=== PATIENT | male | born 1945 | race Caucasian/White ===

== ENCOUNTER → 2023-11-16 16:58 | Outpatient (REF) | payer OTHER, SELFPAY | LOC: RAD 16:58 | PROVIDERS: ATTENDING PHYSICIAN Registered Nurse | DX: S29.9XXA Unspecified injury of thorax, initial encounter (principal) | CPT/HCPCS: 71111 ==

== ENCOUNTER 2023-11-25 06:14 | Day surgery (SDC) | payer OTHER, SELFPAY ==
[2023-11-25 10:35] VITALS: BMI 26.3
[2023-11-25 10:36] VITALS: BMI 26.3
[2023-11-25 10:37] VITALS: BP 160/96
[2023-11-25 12:37] VITALS: BP 145/90
[2023-11-25 12:45] VITALS: BP 167/94
[2023-11-25 13:00] VITALS: BP 162/79
== END 2023-11-25 13:05 | disposition home or self-care (01) ==
LOC: GI 06:14
PROVIDERS: ATTENDING PHYSICIAN Internal Medicine Gastroenterology
DX: D12.0 Benign neoplasm of cecum (principal); D12.2 Benign neoplasm of ascending colon; K57.30 Diverticulosis of large intestine without perforation or abscess without bleeding; K62.1 Rectal polyp; Q43.8 Other specified congenital malformations of intestine; Z86.010 Personal history of colon polyps
CPT/HCPCS: 45385; 45380; 45381; 88305

== ENCOUNTER 2024-02-12 06:26 | Day surgery (SDC) | payer OTHER, SELFPAY ==
[2024-02-12 07:13] VITALS: BMI 25.1
[2024-02-12 07:27] VITALS: BP 160/88
[2024-02-12 07:44] VITALS: BMI 25.1
[2024-02-12 09:24] VITALS: BP 115/73
[2024-02-12 09:30] VITALS: BP 113/68
[2024-02-12 09:45] VITALS: BP 128/75
[2024-02-12 09:55] VITALS: BP 123/85
== END 2024-02-12 10:00 | disposition home or self-care (01) ==
LOC: GI 06:26
PROVIDERS: ATTENDING PHYSICIAN Internal Medicine Gastroenterology
DX: D12.2 Benign neoplasm of ascending colon (principal); K57.30 Diverticulosis of large intestine without perforation or abscess without bleeding; K64.8 Other hemorrhoids; D12.3 Benign neoplasm of transverse colon; K62.1 Rectal polyp; Z86.010 Personal history of colon polyps
CPT/HCPCS: 45385; 45381; 45380; 88305

== ENCOUNTER → 2025-04-06 13:33 | Outpatient (REF) | payer OTHER, SELFPAY | LOC: HWRAD 13:33 | PROVIDERS: ATTENDING PHYSICIAN Nurse Practitioner Adult Health | DX: N18.31 Chronic kidney disease, stage 3a (principal); R79.89 Other specified abnormal findings of blood chemistry | CPT/HCPCS: 76770 ==